=== PATIENT | male | born 1990 | race African-American/Black ===

== ENCOUNTER 2016-11-09 16:25 | Emergency (ER) | payer MEDICAID ==
[~2016-11-09] VITALS: Ht 170.2 cm; Wt 83.9 kg
[2016-11-09 16:59] VITALS: BP 136/82
[2016-11-09] MEDS ORDERED: Famotidine 20 MG/ 2ML VIAL IVP ONE (17:30)
[2016-11-09] MEDS ORDERED: Ketorolac 30mg Inj IV ONE (17:30)
[2016-11-09] MEDS ORDERED: OMEPRAZOLE20 M2 ORAL (18:07)
[2016-11-09] MEDS ORDERED: IBUPROFEN600 MG ORAL (18:07)
[2016-11-09 18:12] VITALS: BP 130/62
--- NOTE | 2016-11-10 10:43 | Diagnostic Imaging Report ---
Indication: Chest pain Technique: One view of the chest Comparison: none Findings: Lungs and pleural spaces are clear. Heart size is normal. Impression: No acute process
--- NOTE | 2016-11-10 17:46 | Emergency Room Report ---
History of Present Illness General Chief Complaint: General Complaint Source: Patient Present Illness HPI The pt is a 25 yo M presenting for SOB and CP which began today. The pt denies any medical Hx and states this has never happened before. The pt does admit to smoking marijuana prior to the symptoms. The pt states the pain is felt as a 5/ 10 dull ache of the mid chest and has been continuous. No radiation. When asked further, the pt does admit to the pain beginning after twisting in bed. The pt denies any other symptoms such as N, V, F, chills, MILIAN, dizziness, numbness/ tingling, abd pain, cough Allergies: Coded Allergies: No Known Allergies (Unverified , 11/09/16) Patient History Past Medical History: see triage record Pertinent Family History: none Social History: Reports: drug use - marijuana Reviewed Nursing Documentation: PMH: Agreed, PSxH: Agreed Nursing Documentation-PMH Past Medical History: No Stated History Review of Systems All Other Systems: negative except mentioned in HPI Physical Exam Vital Signs Date Time Temp Pulse Resp B/P Pulse Ox O2 Delivery O2 Flow Rate FiO2 11/09/16 16:35 98.4 88 14 137/90 99 Room Air Sp02 EP Interpretation: reviewed, normal General Appearance: no apparent distress, alert, GCS 15, non-toxic Head: normocephalic, atraumatic Eyes: bilateral eye PERRL, bilateral eye normal inspection ENT: hearing grossly normal, normal pharynx, no angioedema, normal voice Neck: full range of motion, supple/symm/no masses Respiratory: chest non-tender, lungs clear, normal breath sounds, no accessory muscle use, no wheezing, speaking full sentences, chest symmetrical, palpation of chest normal Cardiovascular #1: regular rate, rhythm, no edema, no murmur Gastrointestinal: normal bowel sounds, soft, non-distended, no guarding, no rebound, tenderness - epigastric Genitourinary: normal inspection, no CVA tenderness Musculoskeletal: back normal, gait/station normal, normal range of motion, non- tender Neurologic: alert, oriented x3, responsive, motor strength/tone normal, sensory intact, speech normal Psychiatric: judgement/insight normal, memory normal, mood/affect normal, no suicidal/homicidal ideation Skin: normal color, no rash, warm/dry, well hydrated Lymphatic: no adenopathy Medical Decision Making PA Attestation Dr. Polanco is my supervising physician. Patient management was discussed with my supervising physician Diagnostic Impression: Primary Impression: Muscle strain Additional Impression: GERD (gastroesophageal reflux disease) ER Course The pt is a 25 yo M presenting for SOB and CP which began today DDx: ACS, GERD, muscular strain PE: vitals WNL. NAD RRR. No MRG. Lungs CTA bilat. TTP over epigastric region Pt is given NS, IV pepcid, and toradol. Pt is feeling much better. The pt will be DC'ed home with motrin and a PPI. ER precautions given. EKG Diagnostic Results Rate: normal Rhythm: NSR ST Segments: no acute changes PA Scribe Text I am acting as scribe for my SP. No acute changes. NSR and normal rate. no acute findings. Chest X-Ray Diagnostic Results EP Interpretation: Yes Findings: no consolidation, no effusion, no pneumothorax Number of Views: 1 PA Scribe Text I am acting as scribe for my SP. CXR shows no acute process Last Vital Signs Date Time Temp Pulse Resp B/P Pulse Ox O2 Delivery O2 Flow Rate FiO2 11/09/16 18:14 98.4 11/09/16 18:12 79 18 130/62 99 Room Air Status: improved Disposition: HOME, SELF-CARE Condition: Improved Scripts Ibuprofen* (MOTRIN*) 600 Mg Tablet 600 MG ORAL Q8H Y for For Pain, #30 TAB 0 Refills Prov: DANNY MENDEZ.AMaurilio 11/09/16 Omeprazole (OMEPRAZOLE) 20 Mg Capsule. 20 MG ORAL DAILY, #30 CAP Prov: DANNY MENDEZ P.A. 11/09/16 Patient Instructions: Muscle Strain, Gastroesophageal Reflux Disease, Adult Additional Instructions: I discussed my findings with the patient. All questions and concerns have been answered. Treatment and medication compliance have been addressed. I advised the patient that they need to follow up with PMD in 3-5 days. Return to ED if symptoms worsen, new symptoms arise, or if needed for any reason. Patient verbalized understanding of discharge instructions. DANNY MENDEZ Nov 10, 2016 17:46
--- NOTE | 2016-12-11 03:11 | Cardiology Report ---
APPROVED REPORT EKG Measurement Heart [id number] CO [id number] Normal sinus rhythm Rightward axis Borderline ECG
== END 2016-11-09 18:12 | disposition home or self-care (01) ==
LOC: EMR 16:55
DX: K21.9 Gastro-esophageal reflux disease without esophagitis (principal); T14.8 Other injury of unspecified body region; X58.XXXA Exposure to other specified factors, initial encounter; Y92.9 Unspecified place or not applicable; Y99.8 Other external cause status
CPT/HCPCS: 71010; 93005; 96374; 96375; 99284; J1885; S0028